=== PATIENT | female | born 1965 | race Caucasian/White ===

== ENCOUNTER 2017-11-30 02:39 | Emergency (ER) | payer SELFPAY ==
[~2017-11-30] VITALS: Ht 177.8 cm; Wt 70.0 kg
[2017-11-30 02:43] VITALS: BP 169/110
== END 2017-11-30 03:34 | disposition home or self-care (01) ==
LOC: ED 03:28
DX: F15.129 Other stimulant abuse with intoxication, unspecified (principal)
CPT/HCPCS: 99281